=== PATIENT | male | born 1970 | race American Indian/Alaskan Native ===

== ENCOUNTER 2017-04-16 08:16 | Outpatient (CLI) | payer BC ==
--- NOTE | 2017-04-16 09:33 | Cat Scan Report ---
CTA CHEST: HISTORY: Cervicobrachial syndrome. COMPARISON: none. TECHNIQUE: Helical CT in 1.25mm intervals following IV contrast. Sagittal and coronal reformatted images. Rotational MIP images. FINDINGS: Contrast bolus is satisfactory. The aorta is normal caliber throughout. No evidence for aneurysm, dissection or atherosclerotic disease. The central pulmonary arteries are normal. Thyroid gland: Normal. Tracheobronchial tree: Normal. Esophagus: Normal. Heart: Normal. Pericardium: Normal. Mediastinum: Normal. Lung Dillard: normal. Pleural Spaces: Normal. Musculoskeletal: Normal. IMPRESSION: Unremarkable CTA chest.
== END 2017-04-16 08:17 | disposition home or self-care (01) ==
LOC: CT 08:16
PROVIDERS: ATTEND Radiology Diagnostic Radiology
DX: I80.201 Phlebitis and thrombophlebitis of unspecified deep vessels of right lower extremity (principal); I87.2 Venous insufficiency (chronic) (peripheral); I87.1 Compression of vein; M53.1 Cervicobrachial syndrome
CPT/HCPCS: 71275; Q9967